=== PATIENT | male | born 1995 | race African-American/Black ===

== ENCOUNTER 2025-04-14 10:57 | Emergency (ER) | payer OTHER ==
[~2025-04-14 10:57] MED LIST: Iopamidol 370 76% 100 ML VIAL ONE
[2025-04-14] MEDS ORDERED: Ketorolac Tromethamine 30 MG (1 mL) VIAL ONE (11:41)
[2025-04-14] MEDS ORDERED: Ondansetron PF 4 MG/2 ML Vial ONE (11:41)
[2025-04-14 11:51] LABS: #Eosinophils 0.2 thou/uL (0.0-0.7); #Lymphocytes 2.2 thou/uL (1.20-3.40); #Monocytes 0.8 thou/uL (0.11-0.59); #Neutrophils 4.2 thou/uL (1.40-6.50); %Basophils 0.5 % (0.0-1.0); %Eosinophils 3.1 % (0.0-10.0); %Lymphocytes 29.7 % (21.0-51.0); %Monocytes 10.2 % (0.0-10.0); %Neutrophils 56.4 % (42.0-75.0); Hematocrit 37.5 % (42.0-52.0); Hemoglobin 12.4 g/dL (14.0-18.0); Manual Diff?? NO; Mean Corpuscular Hemoglobin 26.9 pg (27.0-31.0); Mean Corpuscular Volume 81.3 fl (78.0-98.0); Platelet Count 205 10x3/uL (130-400); Red Blood Cell (RBC) Count 4.61 mill/uL (4.70-6.10); White Blood Cell (WBC) Count 7.4 10x3/uL (4.8-10.8)
[2025-04-14 11:52] LABS: #Basophils 0.0 thou/uL (0.0-0.2)
[2025-04-14 11:56] LABS: ALT (SGPT) 31 U/L (Less than 45); AST (SGOT) 20 U/L (11-34); Albumin 4.1 g/dL (3.1-4.5); Alkaline Phosphatase 67 U/L (40-110); Anion Gap 13 mmol/L (10-20); BUN (Urea Nitrogen) 8 mg/dL (8.9-20.6); Bilirubin, Total 0.3 mg/dL (0.3-1.2); Calc. Creatinine Clearance 0 mL/min (70-130); Calcium 9.1 mg/dL (7.8-10.44); Carbon Dioxide 25 mmol/L (22-29); Chloride 106 mmol/L (98-107); Globulin 2.3 g/dL (2.4-3.5); Glucose 98 mg/dL (70-105); Lipase 40 U/L (8-78); Potassium 4.1 mmol/L (3.5-5.1); Sodium 140 mmol/L (136-145)
[2025-04-14 12:36] LABS: Glucose, Urine (Dipstick) Negative (Negative); Leukocyte Negative (Negative); Protein, Urine (Dipstick) Negative (Neg-Trace); Specific Gravity, Urine 1.015 (1.005-1.030)
[2025-04-14 13:29] LABS: Bacteria/HPF 1+ HPF (None Seen); CAUTI Indications for Culture Pelvic or flank pain; RBC/HPF None Seen HPF (0-3); WBC/HPF 0-3 HPF (0-3)
[2025-04-14 13:30] LABS: Urine Culture Reflex No No
== END 2025-04-14 12:40 | disposition short-term general hospital (02) ==
LOC: NAV ERS 10:57
DX: N50.89 Other specified disorders of the male genital organs (principal); N50.811 Right testicular pain; N50.812 Left testicular pain
CPT/HCPCS: 74177; 80053; 81001; 83690; 85025; 96374; 96375; J1885; J2405; Q9967